=== PATIENT | female | born 1955 | race Caucasian/White ===

== ENCOUNTER → 2016-06-05 | Outpatient (CLI) | payer BC ==
[~2016-06-05] VITALS: Ht 161.3 cm; Wt 65.2 kg
[~2016-06-05] MED LIST: BACTRIM,SEPT1 TABLET PO; DIOVAN160 MG PO; ERGOCALCIF50000 UNIT PO; FLEXERIL5 MG PO; Feosol PO; IMURAN50 MG PO; Imuran PO; LOSARTAN POTAS100 MG PO; MOTRIN800 MG PO; Maxipime IV; Motrin PO; NIFEREX-1501 CAPSULE PO; NORCO 5/3251 TABLET PO; NORVASC2.5 MG PO; OMEPRAZOLE40 M1 PO; PREDNISONE10 MG PO; PREDNISONE5 MG PO; PROLIA60 MG/1 ML SC; RITUXAN10 MG/ML IV; Solu-MEDROL IV; Tylenol Regular Stre PO; augmentin
== END | disposition home or self-care (01) ==
LOC: AMB 07:29
DX: Z12.11 Encounter for screening for malignant neoplasm of colon (principal); Z86.010 Personal history of colon polyps; D12.2 Benign neoplasm of ascending colon; D12.3 Benign neoplasm of transverse colon; K63.5 Polyp of colon; K62.1 Rectal polyp; I10 Essential (primary) hypertension; Z09 Encounter for follow-up examination after completed treatment for conditions other than malignant neoplasm; R73.09 Other abnormal glucose; K21.9 Gastro-esophageal reflux disease without esophagitis; F41.1 Generalized anxiety disorder; R01.1 Cardiac murmur, unspecified; M31.30 Wegener's granulomatosis without renal involvement; Z85.828 Personal history of other malignant neoplasm of skin; Z82.49 Family history of ischemic heart disease and other diseases of the circulatory system; Z82.69 Family history of other diseases of the musculoskeletal system and connective tissue; Z80.1 Family history of malignant neoplasm of trachea, bronchus and lung; Z82.0 Family history of epilepsy and other diseases of the nervous system; Z87.891 Personal history of nicotine dependence; Z88.8 Allergy status to other drugs, medicaments and biological substances; Z79.52 Long term (current) use of systemic steroids
CPT/HCPCS: 88305; B4087

== ENCOUNTER 2017-12-06 20:39 | Emergency (ER) | payer BC ==
[~2017-12-06] VITALS: Ht 160 cm; Wt 68.6 kg
[2017-12-06 21:59] LABS: CHLORIDE 110 mEq/L (99-109)
[2017-12-06 22:00] LABS: SODIUM 143 mEq/L (136-147)
[2017-12-06 22:01] LABS: GLUCOSE 105 mg/dL (70-99)
[2017-12-06 22:05] LABS: CREATININE 1.3 mg/dL (0.6-1.3); GFR ESTIMATE (CALCULATED) 44 mL/min/
[2017-12-06 22:06] LABS: UREA NITROGEN (BUN) 23 mg/dL (9-23)
[2017-12-07] MEDS ORDERED: PERCOCET 5/31 TABLET PO (01:22)
[2017-12-07 01:41] VITALS: BP 158/75
== END 2017-12-07 01:41 | disposition home or self-care (01) ==
LOC: EME 20:39
PROVIDERS: Emergency Medicine
PROC: 0RSKXZZ Reposition Left Shoulder Joint, External Approach (ICD-10-PCS; principal; 2017-12-06)
DX: S43.015A Anterior dislocation of left humerus, initial encounter (principal); S42.252A Displaced fracture of greater tuberosity of left humerus, initial encounter for closed fracture; W01.0XXA Fall on same level from slipping, tripping and stumbling without subsequent striking against object, initial encounter; R11.0 Nausea; I10 Essential (primary) hypertension; Z79.52 Long term (current) use of systemic steroids; Z87.891 Personal history of nicotine dependence
CPT/HCPCS: 73030; 80048; 85025; 99281; 99285; J2405; J3010; J7030